=== PATIENT | male | born 1985 | race African-American/Black ===

== ENCOUNTER 2021-03-18 14:50 | Emergency (ER) | payer SELFPAY ==
[2021-03-18 15:06] VITALS: BP 108/61; PULSE 60; RESP 18; TEMP 36.6; O2SAT 99; BMI 22.1
--- NOTE | 2021-03-18 15:15 | W.ED.MALEGU ---
HPI - Male Genitourinary General: Chief complaint: Urogenital-Male Stated complaint: TROUBLE URINATING Time Seen by Provider: 03/18/21 15:12 History of Present Illness: HPI Narrative: Patient complains about a 1 week history of dysuria. Says it weiss when he pees denies any discharge denies any sexual contact for more than 2 months. Denies any fever chills nausea vomiting or other related problems. MD Complaint: dysuria Onset (ago): day(s) Duration: constant Location: penis Severity: mild Quality: burning Relieving factors: none Exacerbating factors: urination Associated symptoms: Reports no associated symptoms and dysuria; Deny nausea or vomiting Review of Systems Const: Denies: fever(s), chills or body aches Eyes: Denies: change in vision or blurry vision ENMT: Denies: throat pain or nasal congestion Card: Denies: chest pain or dyspnea on exertion Resp: Denies: dyspnea, productive cough or non-productive cough GI: Denies: abdominal pain, nausea or vomiting : Reports: dysuria; Denies: difficulty urinating Musc: Denies: extremity pain Skin/Breast: Denies: rash Neuro: Denies: headache(s) Psych: Denies: anxiety or depression Hugo/Lymph: Denies: easy bruising Physical Exam Const: COMMON NORMALS: no acute distress GI: COMMON NORMALS: Normal to inspection, nondistended, normoactive bowel sounds present Psych: COMMON NORMALS: mental status grossly normal Course Vital Signs: Vital signs: Vital Signs Temperature 97.9 F 03/18/21 15:06 Pulse Rate 78 03/18/21 16:36 Respiratory Rate 16 03/18/21 16:36 Blood Pressure 102/69 03/18/21 16:36 Pulse Oximetry 99 03/18/21 15:06 MDM - Male MDM Narrative: Medical decision making narrative: Lab is going to correct the order and put in the Chlamydia gonorrhea panel that is done in-house. I counseled this and that one but I will have access to wear that 1 in house presently. Patient made aware that will contact with lab results. I contacted patient now at 1500 on Saturday relayed to him that he had gonorrhea that he needed to get in touch with his last sexual partner and let them know that he tested positive and that they need to be seen. Patient said he will come by and sampler pickup prescription he did what I called in. Patient is return today and sampler pickup his prescription. We will stop Keflex. Lab Data: Labs: Lab Results 03/18/21 Range/Units 15:32 Urine Color Yellow (Yellow) Urine Appearance Cloudy (CLEAR) Urine pH 6 (5-7) Ur Specific Gravit y 1.015 (1.005-1.030) Urine Protein Neg (Negative) Urine Glucose (UA) Norm (Normal) Urine Ketones Negative (Negative) Urine Blood 3+ H (Negative) Urine Nitrate Negative (Negative) Urine Bilirubin Neg (Negative) Urine Urobilinogen Norm (Negative) mg/dL Ur Leukocyte Nelda ase 2+ H (Negative) Urine RBC 5-10 H (0-2) /hpf Urine WBC Too numerous to c nt H (0-5) /hpf Ur Squamous Epith Cells None (0-5) /hpf Amorphous Sediment Not Reportable Urine Bacteria Trace (NONE) /hpf Discharge Plan Discharge Patient Disposition: Home Clinical Impression: Gonorrhea Urinary tract infection Qualifiers: Urinary tract infection type: urethritis Qualified Code(s): N34.2 - Other urethritis Condition: Stable Prescriptions: New cefixime 400 mg capsule 400 mg PO DAILY Qty: 1 RF: 0 Discharge Orders: Discharge ED (Routine); Ordered 03/18/21 Ordered By: Keagan Estrada Discharge Diet: Usual diet Discharge Activity: Resume usual activity Patient Instructions: Urinary Tract Infection in Men (ED) Activity Restrictions/Additional Instructions: Follow-up with medical provider as directed. Take medications as prescribed. Return to the ER or your medical provider if condition worsens. Please read and understand discharge instructions. If any questions ask please. Follow back up with your primary care provider in 1 week and get another urine sample make sure infection is cleared up. Coding Level of Care Code ED Scraper Meat for Amalia Fwd Exam Expanded Problem Focused
[2021-03-18 16:12] LABS: Blood Urine 3+ (Negative); Glucose Urine UA Norm (Normal); Ketones Urine Negative (Negative); Nitrate Urine Negative (Negative); Protein Urine Neg (Negative); Specific Gravity, Urine 1.015 (1.005-1.030); Urine Appearance Cloudy (CLEAR); Urine Color Yellow (Yellow); pH Urine 6 (5-7)
[2021-03-18 16:13] LABS: Add Urine Microscopic? YES; Bilirubin Urine Neg (Negative); Leukocyte Esterase Urine 2+ (Negative); Urobilinogen Urine Norm (Negative); WBC Urine TOO NUMEROUS TO CNT /hpf (0-5)
[2021-03-18 16:14] LABS: Add Urine Culture? Yes; Bacteria Urine TRACE /hpf
[2021-03-18 16:36] VITALS: BP 102/69; PULSE 78; RESP 16
== END 2021-03-18 16:37 | disposition home or self-care (01) ==
PROVIDERS: Emergency Provider Nurse Practitioner Family
DX: N34.2 Other urethritis (principal); A54.9 Gonococcal infection, unspecified
CPT/HCPCS: 81001; 87086; 87491; 87591; 99282